=== PATIENT | male | born 1960 | race Caucasian/White ===

== ENCOUNTER 2017-07-02 09:01 | Inpatient (IN) | payer OTHER ==
[2017-07-01 14:36] LABS: HEMATOCRIT 48.8 % (39.2-51.8); HEMOGLOBIN 16.1 g/dL (13.7-18.0); WHITE BLOOD COUNT 11.5 x10^3/uL (3.4-10)
[2017-07-01 14:42] LABS: PATH.CAST-FLAG NOT PRESENT; SPERM-FLAG NOT PRESENT; SRC-FLAG NOT PRESENT; XTAL-FLAG NOT PRESENT; YLC-FLAG NOT PRESENT
[2017-07-01 14:46] LABS: ASPARTATE AMINO TRANSFERASE 16 U/L (15-37); BLOOD UREA NITROGEN 12 mg/dL (7-18)
[~2017-07-02] VITALS: Ht 170.2 cm; Wt 90.7 kg
[~2017-07-02 09:01] MED LIST: BACITRACIN 50,000 UNIT ONE; BUPIVACAINE/PF 0.5% ONE; DULO30CA2 PO; GABA300C10 PO; METH500T7 PO; THROMBIN 5,000 UNIT VIAL TP ONE; VANCOMYCIN 1,000 MG ONE
[2017-07-02] MEDS ORDERED: LACTATED RINGERS 1,000 ML IV SCH (09:30)
[2017-07-02] MEDS ORDERED: REMIFENTANIL 2 MG ONE (11:06)
[2017-07-02] MEDS ORDERED: FENTANYL PF 100 MCG/2ML ONE (11:07)
[2017-07-02] MEDS ORDERED: MIDAZOLAM 1 MG/ML, 2ML ONE (11:07)
[2017-07-02] MEDS ORDERED: PROPOFOL 50 ML ONE ×3 (11:08→13:41)
[2017-07-02] MEDS ORDERED: SUCCINYLCHOLINE 20 MG/ML, 10ML ONE (11:47)
[2017-07-02] MEDS ORDERED: ONDANSETRON 2MG/ML, 2ML ONE (11:47)
[2017-07-02] MEDS ORDERED: DEXAMETHASONE 4 MG/ML, 1ML ONE (11:47)
[2017-07-02] MEDS ORDERED: PROPOFOL 10 MG/ML, 20ML ONE (11:47)
[2017-07-02] MEDS ORDERED: CEFAZOLIN 1,000 MG ONE (11:47)
[2017-07-02] MEDS ORDERED: ROCURONIUM 10 MG/ML ONE (11:47)
[2017-07-02] MEDS ORDERED: CLINDAMYCIN 150 MG/ML, 6ML ONE (12:20)
[2017-07-02] MEDS ORDERED: HYDROmorphone 2 MG/ML, 1ML ONE (13:47)
[2017-07-02] MEDS ORDERED: FENTANYL PF 100 MCG/2ML IV PRN (14:00)
[2017-07-02] MEDS ORDERED: HYDROmorphone 1 MG/ML, 1ML IV PRN (14:00)
[2017-07-02] MEDS ORDERED: MEPERIDINE/PF 25MG/0.5ML IVPush PRN (14:00)
[2017-07-02] MEDS ORDERED: MIDAZOLAM 1 MG/ML, 2ML IV PRN (14:00)
[2017-07-02] MEDS ORDERED: DIAZEPAM 5 MG/ML, 2ML IVPush PRN (14:00)
[2017-07-02] MEDS ORDERED: ALBUTEROL/IPRATROPIUM 2.5MG/0.5MG, 3 ML NPPB PRN (14:00)
[2017-07-02] MEDS ORDERED: OXYcodone 5 MG/5 ML ORAL.SOL UDC PO PRN (14:00)
[2017-07-02] MEDS ORDERED: ACETAMINOPHEN 325 MG TABLET PO PRN ×2 (14:00→15:00)
[2017-07-02] MEDS ORDERED: ALBUTEROL SULFATE 2.5 MG/3 ML NPPB PRN (14:00)
[2017-07-02] MEDS ORDERED: METOPROLOL 1 MG/ML, 5ML IV PRN (14:00)
[2017-07-02] MEDS ORDERED: HYDROcodone/APAP 7.5-325MG/15ML UDC PO PRN (14:00)
[2017-07-02] MEDS ORDERED: ONDANSETRON 2MG/ML, 2ML IVPush PRN ×2 (14:00→15:00)
[2017-07-02] MEDS ORDERED: LABETALOL 5MG/ML, 20ML IV PRN (14:00)
[2017-07-02] MEDS ORDERED: PROMETHAZINE 25 MG/ML, 1ML IV PRN (14:00)
[2017-07-02] MEDS ORDERED: hydrALAzine 20 MG/ML, 1ML IV PRN (14:00)
[2017-07-02] MEDS ORDERED: EPHEDRINE 50 MG/ML, 1ML IVPush PRN (14:00)
[2017-07-02] MEDS ORDERED: OXYcodone 5 MG/5 ML ORAL.SOL UDC ONE (14:59)
[2017-07-02] MEDS ORDERED: DIPHENHYDRAMINE 50 MG CAPSULE PO PRN (15:00)
[2017-07-02] MEDS ORDERED: MAGNESIUM HYDROXIDE 8%, 30ML UDC PO PRN (15:00)
[2017-07-02] MEDS ORDERED: PROMETHAZINE 25 MG/ML, 1ML IM PRN (15:00)
[2017-07-02] MEDS ORDERED: DIPHENHYDRAMINE 50 MG/ML, 1ML IVPush PRN (15:00)
[2017-07-02] MEDS ORDERED: ACETAMINOPHEN 650 MG/20.3 ML UDC ONE (15:00)
[2017-07-02] MEDS ORDERED: LABETALOL 5MG/ML, 20ML IVPush PRN (15:00)
[2017-07-02] MEDS ORDERED: PHARMACY MAY ADJ FOR RENAL FX MC PRN (15:00)
[2017-07-02] MEDS ORDERED: HYDROmorphone 1 MG/ML, 1ML IVPush PRN (15:00)
[2017-07-02] MEDS ORDERED: ACETAMINOPHEN 325 MG TABLET ONE (15:00)
[2017-07-02] MEDS ORDERED: BISACODYL 10 MG SUPP PR PRN (15:00)
[2017-07-02] MEDS ORDERED: HYDROmorphone 1 MG/ML, 1ML ONE (15:05)
[2017-07-02] MEDS ORDERED: hydrALAzine 20 MG/ML, 1ML ONE (15:54)
[2017-07-02] MEDS: D5%-0.9% NACL+KCL 20MEQ 1,000 ML IV SCH (18:20)
[2017-07-02] MEDS: HYDROcodone/APAP 5/325 TABLET PO PRN (18:26)
[2017-07-02 18:43] VITALS: BP 138/76
[2017-07-02] MEDS: GABAPENTIN 300 MG CAPSULE PO SCH (20:42)
[2017-07-02] MEDS: SODIUM CHLORIDE FLUSH 10ML SYR IVF SCH (20:42)
[2017-07-02 23:56] VITALS: BP 144/81
[2017-07-03 03:57] VITALS: BP 165/77
[2017-07-03] MEDS: ENOXAPARIN 30 MG/0.3 ML SQ SCH ×2 (04:49→17:34)
[2017-07-03] MEDS: D5%-0.9% NACL+KCL 20MEQ 1,000 ML IV SCH ×3 (04:49→20:48)
[2017-07-03 04:52] LABS: HEMATOCRIT 45.8 % (39.2-51.8); HEMOGLOBIN 15.1 g/dL (13.7-18.0); WHITE BLOOD COUNT 15.6 x10^3/uL (3.4-10)
[2017-07-03 04:53] LABS: BLOOD UREA NITROGEN 11 mg/dL (7-18)
[2017-07-03 06:50] VITALS: BP 109/65
[2017-07-03] MEDS: HYDROcodone/APAP 5/325 TABLET PO PRN ×3 (08:04→13:38)
[2017-07-03] MEDS: DULOXETINE 30 MG CAPSULE.DR PO SCH (08:04)
[2017-07-03] MEDS: GABAPENTIN 300 MG CAPSULE PO SCH ×2 (08:04→20:48)
[2017-07-03] MEDS: SODIUM CHLORIDE FLUSH 10ML SYR IVF SCH ×2 (08:06→20:48)
[2017-07-03] MEDS: METHOCARBAMOL 750 MG TABLET PO PRN ×2 (09:19→17:28)
[2017-07-03 13:26] VITALS: BP 119/79
[2017-07-03] MEDS: HYDROcodone/APAP 10/325 MG TABLET PO PRN ×2 (17:28→21:32)
[2017-07-03 18:50] VITALS: BP 133/77
[2017-07-04 00:48] VITALS: BP 148/87
[2017-07-04] MEDS: HYDROcodone/APAP 10/325 MG TABLET PO PRN ×6 (01:49→23:55)
[2017-07-04 05:19] LABS: HEMATOCRIT 44.4 % (39.2-51.8); HEMOGLOBIN 14.8 g/dL (13.7-18.0); WHITE BLOOD COUNT 14.9 x10^3/uL (3.4-10)
[2017-07-04 05:40] LABS: BLOOD UREA NITROGEN 11 mg/dL (7-18)
[2017-07-04] MEDS: ENOXAPARIN 30 MG/0.3 ML SQ SCH ×2 (05:57→17:53)
[2017-07-04 06:50] VITALS: BP 132/71
[2017-07-04] MEDS: GABAPENTIN 300 MG CAPSULE PO SCH ×2 (08:05→20:02)
[2017-07-04] MEDS: DULOXETINE 30 MG CAPSULE.DR PO SCH (08:05)
[2017-07-04] MEDS: SENNA/DOCUSATE TABLET PO PRN (08:05)
[2017-07-04] MEDS: METHOCARBAMOL 1,000 MG in DEXTROSE 5% 100 ML IV SCH ×2 (09:53→17:53)
[2017-07-04] MEDS: KETOROLAC 30 MG/1 ML IVPush SCH ×3 (09:53→22:15)
[2017-07-04] MEDS: SODIUM CHLORIDE FLUSH 10ML SYR IVF SCH ×2 (09:53→22:16)
[2017-07-04] MEDS: D5%-0.9% NACL+KCL 20MEQ 1,000 ML IV SCH ×2 (11:00→21:00)
[2017-07-04 13:33] VITALS: BP 134/73
[2017-07-04 18:49] VITALS: BP 125/76
[2017-07-05 01:13] VITALS: BP 113/69
[2017-07-05] MEDS: METHOCARBAMOL 1,000 MG in DEXTROSE 5% 100 ML IV SCH (02:14)
[2017-07-05 05:34] LABS: HEMATOCRIT 42.9 % (39.2-51.8); HEMOGLOBIN 14.1 g/dL (13.7-18.0); WHITE BLOOD COUNT 11.6 x10^3/uL (3.4-10)
[2017-07-05] MEDS: ENOXAPARIN 30 MG/0.3 ML SQ SCH (05:35)
[2017-07-05] MEDS: KETOROLAC 30 MG/1 ML IVPush SCH (05:35)
[2017-07-05] MEDS: D5%-0.9% NACL+KCL 20MEQ 1,000 ML IV SCH (05:36)
[2017-07-05] MEDS ORDERED: METHOCARBAMOL 750 MG TABLET PO PRN (06:00)
[2017-07-05 06:50] VITALS: BP 126/68
[2017-07-05] MEDS: SODIUM CHLORIDE FLUSH 10ML SYR IVF SCH (08:33)
[2017-07-05] MEDS: HYDROcodone/APAP 10/325 MG TABLET PO PRN ×2 (08:35→13:29)
[2017-07-05] MEDS: GABAPENTIN 300 MG CAPSULE PO SCH (08:35)
[2017-07-05] MEDS: DULOXETINE 30 MG CAPSULE.DR PO SCH (08:36)
[2017-07-05] MEDS: SENNA/DOCUSATE TABLET PO PRN (10:24)
[2017-07-05] MEDS ORDERED: GABA300C10 PO (13:12)
[2017-07-05] MEDS ORDERED: METH750T2 PO (13:13)
[2017-07-05 13:15] VITALS: BP 135/84
[2017-07-05] MEDS ORDERED: HYDR-3307 PO (13:15)
== END 2017-07-05 13:44 | disposition home or self-care (01) | DRG 30 ==
LOC: ORIP 09:01 → INTOOBSV 09:01 → OBSVTOIN 14:58 → 4NOR 16:30
PROVIDERS: ADMIT Neurological Surgery; ATTEND Neurological Surgery
PROC: 4A11X4G Monitoring of Peripheral Nervous Electrical Activity, Intraoperative, External Approach (ICD-10-PCS; 2017-07-02)
PROC: 00BX0ZZ Excision of Thoracic Spinal Cord, Open Approach (ICD-10-PCS; principal; 2017-07-02 11:30)
DX: D43.4 Neoplasm of uncertain behavior of spinal cord (principal); F12.10 Cannabis abuse, uncomplicated; F17.210 Nicotine dependence, cigarettes, uncomplicated; M43.17 Spondylolisthesis, lumbosacral region; R26.9 Unspecified abnormalities of gait and mobility; M62.838 Other muscle spasm; M48.07 Spinal stenosis, lumbosacral region; Z80.9 Family history of malignant neoplasm, unspecified; Z88.0 Allergy status to penicillin; Z88.8 Allergy status to other drugs, medicaments and biological substances
CPT/HCPCS: 36415; 71020; 72110; 80048; 80053; 81001; 85025; 85610; 85730; 88307; 88311; 88341; 88342; 93005; C1729; G0378; J0690; J1100; J1170; J1650; J1885; J2250; J2405; J2704; J3010; J3370; J3490; C1781; G0461; J0330; J0360; J2800; J3480; J7120